=== PATIENT | female | born 1960 | race Caucasian/White ===

== ENCOUNTER 2020-02-27 05:01 | Emergency (ER) | payer OTHER ==
[~2020-02-27] VITALS: Ht 157.5 cm; Wt 72.0 kg
[2020-02-27 05:10] VITALS: BP 153/127
[2020-02-27] MEDS ORDERED: methylPREDNISolone sod succ 125mg/2ml vial IV ONE (05:15)
[2020-02-27] MEDS ORDERED: ipratropium 0.5 MG/2.5ML nebule IH ONE (05:15)
[2020-02-27] MEDS ORDERED: albuterol 2.5 MG/3 ML nebule CONTNEB PRN (05:15)
[2020-02-27] MEDS ORDERED: propofol 1000mg/100ml bottle 100 ML IV ONE (05:17)
[2020-02-27] MEDS ORDERED: propofol 1000mg/100ml bottle 100 ML IV PRN (05:20)
--- NOTE | 2020-02-27 05:28 | NUR ---
0525: pt went into a PEA rhythm. Refer to code blue sheet for the code blue.
[2020-02-27] MEDS ORDERED: LOSA25TA96 PO (05:33)
[2020-02-27] MEDS ORDERED: PROP40TA72 PO (05:33)
[2020-02-27] MEDS ORDERED: TIZA4CAP PO (05:35)
[2020-02-27] MEDS ORDERED: POTA10TA10 PO (05:35)
[2020-02-27] MEDS ORDERED: ASPI81TA52 PO (05:35)
[2020-02-27] MEDS ORDERED: NITR0.4T51 SL (05:35)
[2020-02-27] MEDS ORDERED: FURO-150 PO (05:35)
[2020-02-27] MEDS ORDERED: ATOR10TA87 PO (05:35)
[2020-02-27] MEDS ORDERED: OMEP40CA13 PO (05:35)
[2020-02-27] MEDS ORDERED: LINA145C PO (05:35)
--- NOTE | 2020-02-27 05:36 | NUR ---
EMS reports she is staying with people whom took her in and the patient is from [place], and that she recently quit drugs and only uses marijuana and that where they picked her up was a house on [address] and the home was [facility].
--- NOTE | 2020-02-27 06:15 | NUR ---
[phone] ranjan (friend she is staying with) [phone] mom (lives in [place] but in [place] right now) DO NOT KNOW MOMS NAME
[2020-02-27] MEDS ORDERED: FENTANYL-0.9 % NACL/PF 100 ML IV PRN (06:20)
[2020-02-27] MEDS ORDERED: midazolam 100mg in NS 100ml 100 ML IV PRN (06:25)
[2020-02-27 06:34] LABS: ALANINE AMINOTRANSFERASE 407 U/L (12-78); ALBUMIN 2.7 G/DL (3.4-5.0); ALBUMIN/GLOBULIN RATIO 1.2 (1.1-1.5); ALKALINE PHOSPHATASE 120 IU/L (46-116); ANION GAP 18 (8-16); ASPARTATE AMINO TRANSFERASE 392 U/L (10-37); BILIRUBIN,TOTAL 0.3 MG/DL (0.1-1.0); BLOOD UREA NITROGEN 10 MG/DL (7-18); BUN/CREATININE RATIO 6.1 (6.6-38.0); CALCIUM 7.9 MG/DL (8.5-10.1); CHLORIDE 104 MMOL/L (99-107); CREATININE 1.63 MG/DL (0.40-0.90); MAGNESIUM 2.4 MG/DL (1.5-2.4); SODIUM 139 MMOL/L (135-145); TOTAL CARBON DIOXIDE 16.7 MMOL/L (24-32); TOTAL PROTEIN 4.9 G/DL (6.4-8.2); eGFR 33 ML/MIN
[2020-02-27 06:35] LABS: POTASSIUM 5.9 MMOL/L (3.5-5.1)
[2020-02-27 06:37] LABS: GLUCOSE 535 MG/DL (70-104)
--- NOTE | 2020-02-27 06:40 | NUR ---
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 PEA ON MONITOR,NO PULSE OR PERFUSION NOTED WITH ULTRASOUND BY THE DR LOZA DECLEARED AT 0636.
[2020-02-27 07:06] LABS: BASOPHILS # (AUTO) 0.1 X10'3 (0-0.2); BASOPHILS % (AUTO) 0.9 % (0-1); EOSINOPHILS # (AUTO) 0.2 X10'3 (0-0.9); MEAN CORPUSCULAR VOLUME 101.6 FL (78-98); MONOCYTES # (AUTO) 0.4 X10'3 (0-0.9); MONOCYTES % (AUTO) 3.6 % (2-12); WHITE BLOOD COUNT 10.6 X10'3 (4.5-11.0)
[2020-02-27 07:08] LABS: EOSINOPHILS % (AUTO) 1.8 % (0-6); LYMPHOCYTES # (AUTO) 6.9 X10'3 (1.1-4.8); LYMPHOCYTES % (AUTO) 65.1 % (21-51); MEAN CORPUSCULAR HEMOGLOBIN 32.9 PG (27.0-31.0); MEAN CORPUSCULAR HGB CONC 32.4 g/dL (33.0-36.5); MEAN PLATELET VOLUME 8.7 FL (7.4-10.4); NEUTROPHILS % (AUTO) 28.6 % (42-75); PLATELET COUNT 61 X10'3 (140-440); RED BLOOD COUNT 3.65 X10'6 (4.20-5.60); RED CELL DISTRIBUTION WIDTH 13.9 % (11.5-14.5)
[2020-02-27 07:13] LABS: TOTAL CELLS COUNTED 100
[2020-02-27 07:14] LABS: LARGE PLATELETS FEW; PLATELET ESTIMATE DECREASED
--- NOTE | 2020-02-27 07:23 | NUR ---
After hours [facility] calledDinah Nguyen took message.
--- NOTE | 2020-02-27 07:29 | NUR ---
[facility] Tessa returned call. Pt information provided. He will be attempting contact w/ mother for additional input and will call this RN back after that conversation.
--- NOTE | 2020-02-27 07:55 | NUR ---
Deputy Zarate returned call; body released
[2020-02-27] MEDS ORDERED: atropine 0.1mg/ml 10ml syringe ONE (08:00)
[2020-02-27] MEDS ORDERED: epiNEPHrine 0.1mg/ml 10ml syringe ONE (08:00)
[2020-02-27] MEDS ORDERED: etomidate 2mg/ml inj. ONE (08:00)
[2020-02-27] MEDS ORDERED: rocuronium 10mg/ml inj IV ONE (08:00)
[2020-02-27] MEDS ORDERED: sodium bicarbonate (8.4%) 1 mEq/ml syringe ONE (08:00)
--- NOTE | 2020-02-27 08:10 | NUR ---
[facility] contacted. Per Katlyn, ref #[phone].
--- NOTE | 2020-02-27 08:35 | NUR ---
[facility] contacted. Spoke w/ Fabiola. Clothing Room Supervisor will be dispatched shortly.
--- NOTE | 2020-02-27 08:41 | NUR ---
Called Kiana, friend w/ pt status. She reported [facility] had already contacted her.
--- NOTE | 2020-02-27 09:09 | NUR ---
Propofol 100ml bottle had been spiked, primed and readied for use, but not needed. Bottle drawn up and wasted into charcoal container.
--- NOTE | 2020-02-27 09:47 | NUR ---
Pt's brother called requesting information. Travis Wolfe
--- NOTE | 2020-02-27 10:04 | NUR ---
Pt's brother Travis ([phone]) called seeking information r/t arrangements for pt transfer. He indicated the family was chosing to have pt interned @ [facility]. He then set up a 3-way call with pt's Mother Meng who stated "John Paul would be handling all arrangements. She reiterated pt would be [facility]. At culmination of call [facility] personnel arrived for transport of body. When informed family would be using [facility] indicated they should be contacted for transport. Spoke with Yun @ [employer] where a water taxi driver is being dispatched with an eta of 1.0 hr. [place] Hicks updated. Additionally, pt was rapid COVID swabbed @ this time.
== END 2020-02-27 11:36 | disposition expired ==
LOC: ER 05:02
DX: I46.9 Cardiac arrest, cause unspecified (principal); Z79.82 Long term (current) use of aspirin; Z79.899 Other long term (current) drug therapy; Z20.828 Contact with and (suspected) exposure to other viral communicable diseases
CPT/HCPCS: 31500; 36415; 36556; 71045; 80053; 83605; 83735; 83880; 84484; 85007; 85025; 85610; 87635; 92950; 94002; 96374; 99291; 99292; C9803; J2704; J2930; 93005; J0171; J0461